=== PATIENT | male | born 1960 | race Caucasian/White ===

== ENCOUNTER 2024-05-15 16:39 | Emergency (ER) | payer MEDICARE, SELFPAY ==
[2024-05-15 16:42] VITALS: BP 136/94
[2024-05-15 16:46] LABS: Glucose - Point of Care 87 mg/dl (70-99)
[2024-05-15 16:52] VITALS: BP 137/87
[2024-05-15 16:56] VITALS: BP 137/87
[2024-05-15 17:00] VITALS: BP 139/92
[2024-05-15 18:18] LABS: % Basophils 0.5 % (0-2); % Immature Granulocytes 0.4 % (0-0.5); % Lymphocytes 13.4 % (20.5-51.1); % Monocytes 7.3 % (1.7-9.3); % Neutrophils 73.4 % (42.2-75.2); Absolute Eosinophils 0.4 10^3/uL (0-0.7); Absolute Monocytes 0.6 10^3/uL (0.1-0.6); Absolute Neutrophils 5.7 10^3/uL (1.4-6.5); Hematocrit 44.5 % (39.0-52.0); Hemoglobin 15.3 g/dL (13.0-18.0); Mean Corp Hgb Conc. 34.4 g/dL (33.0-37.0); Mean Corpuscular Hgb 29.4 pg (27.0-31.0); Mean Corpuscular Volume 85.6 fL (80.0-94.0); Mean Platelet Volume 11.1 fL (7.4-10.4); Nucleated Red Blood Cells % 0 % (-); Platelet Count 196 10^3/uL (130-400); Red Cell Dist. Width 12.7 % (11.5-14.5); White Blood Cell Count 7.8 10^3/uL (4.8-10.8)
[2024-05-15 18:31] LABS: ALT (SGPT) 25 U/L (0-50); AST (SGOT) 28 U/L (17-59); Albumin 4.4 g/dl (3.5-5.0); Alkaline Phosphatase 108 U/L (38-126); Blood Urea Nitrogen 15 mg/dl (9-20); Calcium 10.1 mg/dl (8.4-10.2); Carbon Dioxide 25 mmol/L (22-30); Chloride 102 mmol/L (98-107); Glucose 84 mg/dl (70-99); Potassium 3.8 mmol/L (3.5-5.1); Sodium 141 mmol/L (135-145); Total Bilirubin 0.9 mg/dl (0.2-1.3); Total Protein 6.4 g/dl (6.3-8.2); eGFR > 60.00
--- NOTE | 2024-05-15 19:38 | ED.GENMED ---
History of Present Illness
General
Chief Complaint: Dizziness
Source: patient
Exam Limitations: none
Time Seen by Provider: 05/15/24 17:20
Nursing documentation reviewed up to this point in time: agreed with
History of Present Illness
History of Present Illness:
63-year-old male past medical history of hypothyroidism presenting to the emergency department today with concerns of an episode where he was kneeling stood up feel lightheaded fell back hit his head feels well at this point denies additional
concerns. Some mild pain to the right elbow but good range of motion.
Past History
Past History
ED Past Medical History: GERD, HTN, Hypercholesterolemia, Hypothyroidism, Psychiatric and Other (BPH)
ED Past Surgical History: Orthopedic
Review of Systems
Review of Systems
Allergies reviewed?: Yes
All Other Systems: ROS reviewed and negative except as documented in HPI and ROS
Phy Exam
Physical Exam
Physical Exam:
GENERAL: Alert , in no apparent distress
EYE: pupils equal and reactive
NECK: Vague discomfort to the posterior neck no midline pain supple, no significant adenopathy.
ENT: o/p clr, mmm.
CARDIAC: Regular rate and rhythm .
LUNGS: Clear breath sounds bilaterally, no acute respiratory distress, no wheezes/rales/rhonchi
ABDOMEN: Soft, without focal tenderness, no r/g, no cvat
NEUROLOGICAL: Alert and oriented, no focal neuro deficits
SKIN: Warm and dry, skin intact.
MUSCULOSKELETAL: No edema, well perfused.
PSYCH: Normal and appropriate interaction.
Course
Orders/Labs/Results
Orders:
Orders
05/15/24 16:45
ECG [Electrocardiogram (*1)] Urgent
Reason for Study: Vertigo / Dizzy
EKG- Treatment ONCE
05/15/24 17:31
CT Cervical Spine W/o Iv Contr Urgent
Comment:
Reason For Exam: hx of cervical fusion surgery, fall hit head/neck
CT Head W/o Iv Contrast Urgent
Comment:
Reason For Exam: fal lhit head, syncope
05/15/24 18:07
CBC/With Diff [Complete Blood Count/With Diff] Urgent
CMP [Comprehensive Metabolic Panel] Urgent
Abnormal Lab Results
05/15/24
18:07
MPV 11.1 H fL
(7.4-10.4)
Absolute Lymphs (auto) 1.0 L 10^3/uL
(1.2-3.4)
Lymphocytes % 13.4 L %
(20.5-51.1)
05/15/24 18:07
05/15/24 18:07
Vital Signs
Initial and Last Documented VS:
Initial Vital Signs
Temp Pulse Resp BP Pulse Ox
98.3 F 84 18 136/94 99
05/15/24 16:42 05/15/24 16:42 05/15/24 16:42 05/15/24 16:42 05/15/24 16:42
Last Documented Vital Signs
Temp Pulse Resp BP Pulse Ox
98.3 F 73 17 139/92 100
05/15/24 16:42 05/15/24 17:15 05/15/24 17:15 05/15/24 17:00 05/15/24 18:09
MDM/Problems Addressed
MDM/Problems Addressed:
63-year-old male presenting to the emergency department today after standing up quickly feeling lightheaded falling backward hitting his head lost consciousness for a brief moment. Witnessed by bystanders. Otherwise feels well at this point labs
unremarkable here EKG normal head CT and neck CT without emergent findings. Asymptomatic throughout ER stay. No red flag syncope. Does not seem to be consistent with cardiac etiology considering prodrome, no palpitations chest pain or shortness
of breath. Stable for outpatient management return precautions given.
*Critical Care Note
Total Time (30-74mins, 75-104mins- exclusive of procedures): Not Applicable
ED Attending Note
-
Portions of this chart may have been created with voice recognition software.� Occasional wrong word or��sound alike� substitutions may have occurred due to the inherent limitations of voice recognition software.
Discharge Plan
Departure
Patient Disposition: Home (Routine Discharge)
Date of Disposition: 05/15/24
Time of Disposition: 19:40
Patient with high blood pressure during this ER visit?: No
Condition: Good
Covid-19: Not Applicable
Discharge Problem:
Syncope
Instructions: Syncope (Fainting) (DC)
Referrals:
Cheikh Mishra MD [Family Provider] -
Activity Restrictions/Additional Instructions:
You came to the emergency department today with concerns after passing out. Here he had a reassuring assessment. Please follow closely with the primary care doctor. Return to the emergency department for any worsening, new or concerning symptoms.
Interventions
Interventions:
*Risk Screen - Suicide Last Done: 05/15/24 16:42
*General Assessment Last Done: 05/15/24 16:42
*Neglect/Abuse Screening Last Done: 05/15/24 16:42
ED- Neurological Assessment Last Done: 05/15/24 18:23
Discharge Date and Time
Print Language: MALAY
[2024-05-15 19:46] VITALS: BP 149/91
== END 2024-05-15 19:47 | disposition home or self-care (01) ==
LOC: EMR 16:39
PROVIDERS: Physician Assistant; EMERGENCY PHYSICIAN Emergency Medicine; FAMILY PHYSICIAN Internal Medicine
DX: R55 Syncope and collapse (principal); S09.90XA Unspecified injury of head, initial encounter; M25.521 Pain in right elbow; W19.XXXA Unspecified fall, initial encounter; I10 Essential (primary) hypertension; K21.9 Gastro-esophageal reflux disease without esophagitis; E78.00 Pure hypercholesterolemia, unspecified; E03.9 Hypothyroidism, unspecified; N40.0 Benign prostatic hyperplasia without lower urinary tract symptoms; M43.22 Fusion of spine, cervical region; Z88.6 Allergy status to analgesic agent; Z88.1 Allergy status to other antibiotic agents; Z88.8 Allergy status to other drugs, medicaments and biological substances
CPT/HCPCS: 99284; 70450; 72125; 80053; 82962; 85025; 93005

== ENCOUNTER → 2025-03-14 13:50 | Outpatient (REF) | payer MEDICARE, SELFPAY | LOC: HWRAD 13:50 | PROVIDERS: ATTENDING PHYSICIAN Urology; FAMILY PHYSICIAN Internal Medicine | DX: N20.0 Calculus of kidney (principal) | CPT/HCPCS: 74176 ==

== ENCOUNTER → 2025-05-16 15:25 | Outpatient (REF) | payer MEDICARE, SELFPAY | LOC: PAVMRI 15:25 | PROVIDERS: ATTENDING PHYSICIAN Physician Assistant; FAMILY PHYSICIAN Internal Medicine | DX: M75.101 Unspecified rotator cuff tear or rupture of right shoulder, not specified as traumatic (principal); M12.811 Other specific arthropathies, not elsewhere classified, right shoulder | CPT/HCPCS: 73221 ==

== ENCOUNTER 2025-06-01 19:09 | Emergency (ER) | payer MEDICARE, SELFPAY ==
[2025-06-01 19:15] VITALS: BP 160/97
[2025-06-01 19:52] LABS: Hematocrit 41.9 % (39.0-52.0); Hemoglobin 14.1 g/dL (13.0-18.0); Mean Corp Hgb Conc. 33.7 g/dL (33.0-37.0); Mean Corpuscular Volume 89.0 fL (80.0-94.0); Nucleated Red Blood Cells % 0 % (-); Platelet Count 236 10^3/uL (130-400); Red Cell Dist. Width 13.7 % (11.5-14.5)
[2025-06-01 20:09] LABS: ALT (SGPT) 33 U/L (0-50); AST (SGOT) 23 U/L (17-59); Albumin 4.0 g/dl (3.5-5.0); Alkaline Phosphatase 105 U/L (38-126); Blood Urea Nitrogen 17 mg/dl (9-20); Calcium 9.5 mg/dl (8.4-10.2); Carbon Dioxide 29 mmol/L (22-30); Chloride 105 mmol/L (98-107); Glucose 100 mg/dl (70-99); Potassium 4.1 mmol/L (3.5-5.1); Sodium 137 mmol/L (135-145); Total Protein 6.1 g/dl (6.3-8.2); eGFR > 60.00
[2025-06-01 22:23] VITALS: BP 130/86; BMI 26.7
--- NOTE | 2025-06-01 23:01 | ED.GENMED ---
History of Present Illness
General
Chief Complaint: Musculo-Skeletal Complaint
Source: patient
Time Seen by Provider: 06/01/25 22:11
History of Present Illness
History of Present Illness:
Note:
CHIEF COMPLAINT(S)
Swelling and soreness in the left elbow.
HISTORY OF PRESENT ILLNESS
The patient is a 64-year-old male who reports experiencing swelling in his left elbow starting last . Initially, the swelling was minimal with some soreness. During a routine visit with his primary care physician on Friday, they observed the
swelling and prescribed a course of methylprednisolone. The patient completed the steroid treatment today. Initially, the swelling seemed to improve by Friday, but it worsened again by yesterday, and today it has become significantly prominent. The
patient denies any prior history of trauma or injury to the elbow. He reports no history of psoriasis or eczema. The left elbow shows no signs of redness or erythema, and there is minimal tenderness upon examination. The patient has a chronic
hepatic condition and is unable to take acetaminophen products due to elevated liver enzymes.
PHYSICAL EXAM
General: Alert, no acute distress.
Skin: Warm, dry.
Head: Normocephalic, atraumatic.
Neck: Supple, trachea midline.
Eye Ears, Nose, Mouth and Throat: Oral mucosa moist.
Cardiovascular: Normal peripheral perfusion, no edema.
Respiratory: Respirations are non-labored.
Gastrointestinal: Abdomen nondistended.
Back: Normal range of motion, normal alignment.
Musculoskeletal: The left elbow shows swelling with fullness at the bursa, no surrounding redness, minimal tenderness, and a normal range of motion.
Neurological: Alert and oriented to person, place, time, and situation, no focal neurological deficit observed.
Psychiatric: Cooperative, appropriate mood & affect.
PLAN
1. Aspiration of the elbow to drain the fluid, followed by application of compressive dressing to manage the swelling.
2. Avoidance of non-steroidal anti-inflammatory drugs due to elevated liver enzymes.
3. Continue to monitor for signs of infection, such as increased redness or swelling.
4. Suggest follow-up with orthopedics for further evaluation and management, including possible bursa excision if symptoms persist or recur.
5. Advise the patient on methods to reduce inflammation, including icing the area and keeping it compressed for 24-48 hours.
DIFFERENTIAL DIAGNOSIS
The Differential Diagnosis includes, in no particular order and is not limited to:
1. Olecranon bursitis
2. Gout
3. Rheumatoid arthritis
4. Psoriatic arthritis
5. Septic arthritis
6. Tendinitis
7. Osteoarthritis
8. Synovitis
9. Traumatic injury without clear etiology
10. Localized cellulitis
Disposition:
SUMMARY OF ENCOUNTER
The patient, a 64-year-old male, presented to the emergency department with persistent swelling and soreness in the left elbow, noted to be olecranon bursitis. In the ED, the decision was made to aspirate the bursa due to its tense nature. Slightly
more than 10 cc of clear serosanguinous fluid was obtained, with no purulent drainage present. A compressive dressing was applied post-procedure. Given the patients elevated liver enzymes and chronic hepatic condition, non-steroidal
anti-inflammatory drugs (NSAIDs) were recommended under careful consideration.
PROCEDURES
Aspiration of the left olecranon bursa was performed, extracting slightly more than 10 cc of serosanguinous fluid. Compressive dressing was applied to manage swelling.
PATIENT EDUCATION AND COUNSELING
The patient was counseled regarding olecranon bursitis, the nature of the fluid aspirated, and the application of compressive dressing. Advice was provided on reducing inflammation and monitoring for signs of infection such as increased redness or
swelling.
FOLLOW-UP INSTRUCTIONS
The patient was advised to follow-up with orthopedics as previously planned for further evaluation and potentially ongoing management including considerations for bursa excision if symptoms persist.
MEDICATION RECONCILIATION
NSAIDs were recommended for outpatient management.
MEDICAL DECISION MAKING
-Complexity of Data Reviewed: Chronic conditions affecting care include chronic hepatic condition. Differential diagnosis includes olecranon bursitis, gout, rheumatoid arthritis, psoriatic arthritis, septic arthritis, tendinitis, osteoarthritis,
synovitis, traumatic injury without clear etiology, localized cellulitis.
DIAGNOSIS
Olecranon bursitis (ICD-10: M70.22)
Past History
Past History
ED Past Medical History: GERD, HTN, Hypercholesterolemia, Hypothyroidism, Psychiatric and Other (BPH)
ED Past Surgical History: Orthopedic
Phy Exam
Physical Exam
Physical Exam:
.
Course
Orders/Labs/Results
Orders:
Orders
06/01/25 19:17
Elbow, Left [CR Elbow - Left Min 3 Views ] Urgent
Comment:
Reason For Exam: swelling
06/01/25 19:45
Complete Blood Count/With Diff Urgent
Comprehensive Metabolic Panel Urgent
Blood Culture Urgent
DANIEL Source: Blood/Venous
Specimen Description:
Abnormal Lab Results
06/01/25
19:45
Absolute Monos (auto) 0.9 H 10^3/uL
(0.1-0.6)
Lymphocytes % 17.0 L %
(20.5-51.1)
Monocytes % 10.7 H %
(1.7-9.3)
Eosinophils % 7.6 H %
(0-6)
Glucose 100 H mg/dl
(70-99)
Total Protein 6.1 L g/dl
(6.3-8.2)
06/01/25 19:45
06/01/25 19:45
Vital Signs
Initial and Last Documented VS:
Initial Vital Signs
Temp Pulse Resp BP Pulse Ox
98.9 F 97 18 160/97 100
06/01/25 19:15 06/01/25 19:15 06/01/25 19:15 06/01/25 19:15 06/01/25 19:15
Last Documented Vital Signs
Temp Pulse Resp BP Pulse Ox
98.5 F 81 18 130/86 97
06/01/25 22:23 06/01/25 22:23 06/01/25 22:23 06/01/25 22:23 06/01/25 23:05
Procedures
Incision/Drainage/Joint Aspiration
Left Elbow:
Anethesia: ethyl chloride
Preparation: cleaned with Betadine
Type of procedure: aspiration
Nature of site: other (bursitis)
How much fluid was obtained?: number in mls (10mls)
Fluid description: yellowish
Treatment: left open for drainage
*Pulse Oximetry
SaO2: 97
Oxygen Mode of Delivery: Room air
Patient hypoxic: no
*Critical Care Note
Total Time (30-74mins, 75-104mins- exclusive of procedures): Not Applicable
ED Attending Note
-
Portions of this chart may have been created with voice recognition software.� Occasional wrong word or��sound alike� substitutions may have occurred due to the inherent limitations of voice recognition software.
Discharge Plan
Departure
Patient Disposition: Home (Routine Discharge)
Date of Disposition: 06/01/25
Time of Disposition: 23:03
Patient with high blood pressure during this ER visit?: No
Discharge Problem:
Bursitis, olecranon
Instructions: Bursitis - ED (DC)
Referrals:
Cheikh Mishra MD [Family Provider]
Activity Restrictions/Additional Instructions:
Please see your orthopedic doctor next 1 week for follow-up and reevaluation. Leave compressive dressing on for the next 48 hours. Continue anti-inflammatories as discussed. Ice often. Avoid pressure on the elbow or excessive overuse.
Interventions
Interventions:
*Risk Screen - Suicide Last Done: 06/01/25 19:15
*General Assessment Last Done: 06/01/25 19:15
*Neglect/Abuse Screening Last Done: 06/01/25 19:15
*ED- Fall Risk Assessment Last Done: 06/01/25 19:15
*ED COVID-19 Vaccine History Last Done: 06/01/25 19:15
ED-Musculoskeletal Assessment Last Done: 06/01/25 22:25
Discharge Date and Time
Print Language: MACEDONIAN
== END 2025-06-01 23:23 | disposition home or self-care (01) ==
LOC: EMR 19:09
PROVIDERS: Student in an Organized Health Care Education/Training Program; EMERGENCY PHYSICIAN Emergency Medicine; FAMILY PHYSICIAN Internal Medicine
DX: M70.22 Olecranon bursitis, left elbow (principal); I10 Essential (primary) hypertension; E78.00 Pure hypercholesterolemia, unspecified; E03.9 Hypothyroidism, unspecified; K21.9 Gastro-esophageal reflux disease without esophagitis; N40.0 Benign prostatic hyperplasia without lower urinary tract symptoms; K76.9 Liver disease, unspecified
CPT/HCPCS: 99284; 20605; 73080; 80053; 85025; 87040